=== PATIENT | female | born 1995 | race Caucasian/White ===

== ENCOUNTER → 2017-07-05 | Outpatient (CLI) | payer OTHER ==
[~2017-07-05] MED LIST: NO HOME MEDICATIONS
== END ==
LOC: COL.LAB 08:44
DX: Z11.3 Encounter for screening for infections with a predominantly sexual mode of transmission (principal)

== ENCOUNTER → 2017-07-13 | Outpatient (CLI) | payer OTHER ==
[2017-07-13 09:46] LABS: COLLECTION METHOD CLEAN CATCH
[2017-07-13 09:59] LABS: MUCOUS Present /lpf; PH 7 (5-8); URINE APPEARANCE Cloudy; URINE BACTERIA Rare /hpf; URINE BILIRUBIN Negative (NEGATIVE); URINE BLOOD 1+ (NEGATIVE); URINE COLOR Yellow; URINE GLUCOSE Negative (NEGATIVE); URINE KETONE Negative (NEGATIVE); URINE LEUKOCYTE ESTERASE 3+ (NEGATIVE); URINE NITRATE Negative (NEGATIVE); URINE PROTEIN(semi-quant) Negative (NEGATIVE); URINE UROBILINOGEN Negative (NEGATIVE)
== END ==
LOC: COL.LAB 09:00
PROVIDERS: Family Medicine
DX: N89.8 Other specified noninflammatory disorders of vagina (principal); R30.0 Dysuria

== ENCOUNTER → 2017-09-04 | Outpatient (CLI) | payer OTHER ==
[2017-09-04 17:28] LABS: COLLECTION METHOD CLEAN CATCH
[2017-09-04 17:39] LABS: MUCOUS Present /lpf; PH 5 (5-8); URINE APPEARANCE Cloudy; URINE BACTERIA None Seen /hpf; URINE BILIRUBIN Negative (NEGATIVE); URINE BLOOD Negative (NEGATIVE); URINE COLOR Yellow; URINE GLUCOSE Negative (NEGATIVE); URINE KETONE 2+ (NEGATIVE); URINE LEUKOCYTE ESTERASE Trace (NEGATIVE); URINE NITRATE Negative (NEGATIVE); URINE PROTEIN(semi-quant) 1+ (NEGATIVE); URINE UROBILINOGEN Negative (NEGATIVE)
== END ==
LOC: COL.LAB 15:59
PROVIDERS: Family Medicine
DX: R30.0 Dysuria (principal)

== ENCOUNTER 2017-09-30 19:53 | Emergency (ER) | payer OTHER ==
[~2017-09-30] VITALS: Ht 149.9 cm; Wt 56.8 kg
[2017-09-30 19:56] VITALS: BP 124/77; PULSE 105; TEMP 98.5
[2017-09-30] MEDS ORDERED: SPRINTEC 35 MCG1 TAB PO (19:59)
[2017-09-30] MEDS ORDERED: BACTRIM DS 8001 TAB PO (20:26)
== END 2017-09-30 20:37 | disposition home or self-care (01) ==
LOC: COL.ER 19:53
DX: L03.115 Cellulitis of right lower limb (principal)

== ENCOUNTER → 2017-10-04 | Outpatient (CLI) | payer OTHER ==
[~2017-10-04] MED LIST changes: +BACTRIM DS 8001 TAB PO; +SPRINTEC 35 MCG1 TAB PO
== END ==
LOC: COL.LAB 15:55
DX: N89.8 Other specified noninflammatory disorders of vagina (principal)

== ENCOUNTER → 2017-10-04 | Outpatient (CLI) | payer OTHER | LOC: ZCOL.LAB 01:10 | DX: L02.415 Cutaneous abscess of right lower limb (principal) ==

== ENCOUNTER → 2018-09-13 | Outpatient (CLI) | payer OTHER | LOC: COL.LAB 17:50 → ZCOL.LAB 17:50 | DX: Z11.3 Encounter for screening for infections with a predominantly sexual mode of transmission (principal); N89.8 Other specified noninflammatory disorders of vagina ==

== ENCOUNTER 2020-07-30 17:54 | Emergency (ER) | payer SELFPAY ==
[~2020-07-30] VITALS: Ht 149.9 cm; Wt 61.4 kg
[2020-07-30 18:08] VITALS: TEMP 98.4
[2020-07-30 18:24] LABS: BASO # 0.1 (0.0-0.2); BASO % 0.4 % (0.0-2.0); EOS % 0.2 % (0-4.0); GRAN # 8.5 (1.4-6.5); GRAN % 68.7 % (42.2-75.2); HEMATOCRIT 43.6 % (37.0-47.0); LYMPH # 2.7 (1.2-3.4); LYMPH % 21.4 % (20.0-51.0); MEAN CELL VOLUME 90 fl (80.0-100.0); MEAN CORPUSCULAR HEMOGLOBIN 29 pg (27.0-31.0); MEAN CORPUSCULAR HGB CONC 32 g/dl (33.0-37.0); MEAN PLATELET VOLUME 10.7 fl (7.4-10.4); MONO # 1.1 (0.1-0.6); PLATELET COUNT 355 K/mm3 (130-400); RED BLOOD COUNT 4.83 M/mm3 (4.10-5.30); REDCELL DISTRIBUTION WIDTH-CV 14.6 % (11.5-14.5)
[2020-07-30 18:37] LABS: ALANINE AMINOTRANSFERASE 39 U/L (4-34); ALKALINE PHOSPHATASE 95 U/L (50-136); ANION GAP 15 mmol/L (7-16); AST,SGOT 44 U/L (15-37); BILIRUBIN,TOTAL 0.7 mg/dL (0.0-1.0); BLOOD UREA NITROGEN 6 mg/dL (7-17); CALCIUM 9.8 mg/dL (8.4-10.2); CARBON DIOXIDE 23 mmol/L (22-30); CHLORIDE 98 mmol/L (98-107); CREATININE, serum 0.53 (0.52-1.25); GLUCOSE 103 mg/dL (74-106); POTASSIUM 3.5 mmol/L (3.4-5.0); SODIUM 136 mmol/L (137-145); TOTAL PROTEIN 8.4 gm/dL (6.4-8.2)
[2020-07-30 18:59] LABS: TROPONIN-I < 0.012 ng/mL (0.000-0.035)
[2020-07-30 19:58] VITALS: BP 133/87; PULSE 100
== END 2020-07-30 20:00 | disposition home or self-care (01) ==
LOC: COL.ER 17:54
PROVIDERS: Nurse Practitioner Primary Care
DX: F16.129 Hallucinogen abuse with intoxication, unspecified (principal); F10.129 Alcohol abuse with intoxication, unspecified
CPT/HCPCS: J2060

== ENCOUNTER 2020-10-22 20:36 | Emergency (ER) | payer SELFPAY ==
[~2020-10-22] VITALS: Ht 149.9 cm; Wt 59.1 kg
[2020-10-22 21:49] LABS: ALANINE AMINOTRANSFERASE 73 U/L (4-34); ALBUMIN 5.2 gm/dL (3.5-5.0); ALKALINE PHOSPHATASE 113 U/L (50-136); ANION GAP 21 mmol/L (7-16); AST,SGOT 107 U/L (15-37); BILIRUBIN,TOTAL 0.2 mg/dL (0.0-1.0); BLOOD UREA NITROGEN 8 mg/dL (7-17); CALCIUM 9.6 mg/dL (8.4-10.2); CARBON DIOXIDE 18 mmol/L (22-30); CHLORIDE 99 mmol/L (98-107); CREATININE, serum 0.59 (0.52-1.25); GLUCOSE 98 mg/dL (74-106); POTASSIUM 3.8 mmol/L (3.4-5.0); SODIUM 138 mmol/L (137-145); TOTAL PROTEIN 9.8 gm/dL (6.4-8.2)
[2020-10-22 21:50] LABS: BASO # 0.1 (0.0-0.2); BASO % 0.8 % (0.0-2.0); GRAN % 79.4 % (42.2-75.2); HEMATOCRIT 45.2 % (37.0-47.0); HEMOGLOBIN 14.3 g/dl (12.5-16.0); LYMPH # 1.3 (1.2-3.4); LYMPH % 12.6 % (20.0-51.0); MEAN CELL VOLUME 93 fl (80.0-100.0); MEAN CORPUSCULAR HEMOGLOBIN 30 pg (27.0-31.0); MEAN CORPUSCULAR HGB CONC 32 g/dl (33.0-37.0); MEAN PLATELET VOLUME 10.4 fl (7.4-10.4); MONO # 0.7 (0.1-0.6); PLATELET COUNT 389 K/mm3 (130-400); RED BLOOD COUNT 4.84 M/mm3 (4.10-5.30); REDCELL DISTRIBUTION WIDTH-CV 14.8 % (11.5-14.5)
[2020-10-22 22:04] LABS: TROPONIN-I < 0.012 ng/mL (0.000-0.035)
[2020-10-22 22:21] LABS: COLLECTION METHOD CLEAN CATCH
[2020-10-22 22:29] LABS: MUCOUS Present /lpf; PH 5 (5-8); SQUAMOUS EPITHELIAL 0-2 /hpf; URINE APPEARANCE Hazy; URINE BACTERIA None Seen /hpf; URINE BILIRUBIN Negative (NEGATIVE); URINE BLOOD 2+ (NEGATIVE); URINE COLOR Yellow; URINE GLUCOSE Negative (NEGATIVE); URINE KETONE 2+ (NEGATIVE); URINE LEUKOCYTE ESTERASE Negative (NEGATIVE); URINE NITRATE Negative (NEGATIVE); URINE PROTEIN(semi-quant) 2+ (NEGATIVE); URINE RBC 0-2 /hpf; URINE UROBILINOGEN Negative (NEGATIVE)
[2020-10-22 23:39] LABS: MAGNESIUM 1.9 mg/dL (1.6-2.3)
[2020-10-23 00:10] LABS: THYROID STIMULATING HORMONE 1.29 uIU/mL (0.465-4.680)
[2020-10-23 00:24] VITALS: BP 119/82; PULSE 102; TEMP 98.3
== END 2020-10-23 00:35 | disposition home or self-care (01) ==
LOC: COL.ER 20:36
PROVIDERS: Nurse Practitioner
DX: F41.9 Anxiety disorder, unspecified (principal); F19.10 Other psychoactive substance abuse, uncomplicated
CPT/HCPCS: J2060; J7030

== ENCOUNTER 2021-01-26 18:38 | Emergency (ER) | payer SELFPAY ==
[~2021-01-26] VITALS: Ht 149.9 cm; Wt 68.2 kg
[2021-01-26 18:39] VITALS: TEMP 98.2
[2021-01-26 20:08] LABS: BASO # 0.1 (0.0-0.2); BASO % 1.5 % (0.0-2.0); EOS % 0.5 % (0-4.0); GRAN # 2.5 (1.4-6.5); GRAN % 45.8 % (42.2-75.2); HEMATOCRIT 44.5 % (37.0-47.0); HEMOGLOBIN 13.9 g/dl (12.5-16.0); LYMPH # 2.1 (1.2-3.4); LYMPH % 38.7 % (20.0-51.0); MEAN CELL VOLUME 95 fl (80.0-100.0); MEAN CORPUSCULAR HEMOGLOBIN 30 pg (27.0-31.0); MEAN CORPUSCULAR HGB CONC 31 g/dl (33.0-37.0); MEAN PLATELET VOLUME 11.5 fl (7.4-10.4); MONO # 0.7 (0.1-0.6); MONO % 13.3 % (1.7-9.3); PLATELET COUNT 310 K/mm3 (130-400); RED BLOOD COUNT 4.69 M/mm3 (4.10-5.30); REDCELL DISTRIBUTION WIDTH-CV 13.8 % (11.5-14.5)
[2021-01-26 20:15] LABS: ALBUMIN 4.7 gm/dL (3.5-5.0); CREATININE, serum 0.38 (0.52-1.25); POTASSIUM 4.7 mmol/L (3.4-5.0); TOTAL PROTEIN 8.6 gm/dL (6.4-8.2)
[2021-01-26 20:27] LABS: TROPONIN-I 0.012 ng/mL (0.000-0.035)
[2021-01-26 22:15] VITALS: BP 127/68; PULSE 81
[2021-01-27] MEDS ORDERED: PEPCID 20MG TAB20 MG PO (05:57)
== END 2021-01-26 22:15 | disposition home or self-care (01) ==
LOC: COL.ER 18:38
PROVIDERS: Emergency Medicine
DX: F41.9 Anxiety disorder, unspecified (principal); F15.10 Other stimulant abuse, uncomplicated; R07.89 Other chest pain; F10.10 Alcohol abuse, uncomplicated; R00.0 Tachycardia, unspecified; E86.0 Dehydration
CPT/HCPCS: J7030

== ENCOUNTER 2021-01-27 01:31 | Emergency (ER) | payer SELFPAY ==
[~2021-01-27] VITALS: Ht 149.9 cm; Wt 90.9 kg
[2021-01-27 03:43] LABS: TROPONIN-I < 0.012 ng/mL (0.000-0.035)
[2021-01-27] MEDS ORDERED: PEPCID 20MG TAB20 MG PO (05:57)
[2021-01-27 06:20] VITALS: BP 135/93; PULSE 95; TEMP 98.1
== END 2021-01-27 06:20 | disposition home or self-care (01) ==
LOC: COL.ER 01:31
PROVIDERS: Emergency Medicine
DX: F41.9 Anxiety disorder, unspecified (principal); F15.10 Other stimulant abuse, uncomplicated
CPT/HCPCS: J7030

== ENCOUNTER 2021-02-07 06:58 | Emergency (ER) | payer SELFPAY ==
[~2021-02-07] VITALS: Ht 149.9 cm; Wt 68.2 kg
[~2021-02-07 06:58] MED LIST changes: +PEPCID 20MG TAB20 MG PO
[2021-02-07 07:20] LABS: BASO # 0.1 (0.0-0.2); BASO % 0.8 % (0.0-2.0); EOS % 0.3 % (0-4.0); GRAN # 3.2 (1.4-6.5); GRAN % 49.6 % (42.2-75.2); HEMATOCRIT 44.2 % (37.0-47.0); HEMOGLOBIN 14.3 g/dl (12.5-16.0); LYMPH # 2.1 (1.2-3.4); LYMPH % 32.9 % (20.0-51.0); MEAN CELL VOLUME 94 fl (80.0-100.0); MEAN CORPUSCULAR HEMOGLOBIN 30 pg (27.0-31.0); MEAN CORPUSCULAR HGB CONC 32 g/dl (33.0-37.0); MONO % 15.9 % (1.7-9.3); PLATELET COUNT 310 K/mm3 (130-400); REDCELL DISTRIBUTION WIDTH-CV 13.4 % (11.5-14.5)
[2021-02-07 07:38] LABS: ALBUMIN 4.9 gm/dL (3.5-5.0); BILIRUBIN,TOTAL 0.4 mg/dL (0.0-1.0); C-REACTIVE PROTEIN 0.5 mg/dL (0.0-0.9); CALCIUM 9.9 mg/dL (8.4-10.2); CREATININE, serum 0.48 (0.52-1.25); POTASSIUM 3.2 mmol/L (3.4-5.0); TOTAL PROTEIN 8.2 gm/dL (6.4-8.2)
[2021-02-07 08:33] LABS: COLLECTION METHOD CLEAN CATCH
[2021-02-07 08:42] LABS: PH 7 (5-8); SQUAMOUS EPITHELIAL 0-2 /hpf; URINE APPEARANCE Clear; URINE BACTERIA Rare /hpf; URINE BILIRUBIN Negative (NEGATIVE); URINE BLOOD 2+ (NEGATIVE); URINE COLOR Straw; URINE GLUCOSE Negative (NEGATIVE); URINE KETONE Negative (NEGATIVE); URINE LEUKOCYTE ESTERASE Negative (NEGATIVE); URINE NITRATE Negative (NEGATIVE); URINE PROTEIN(semi-quant) Negative (NEGATIVE); URINE RBC 0-2 /hpf; URINE UROBILINOGEN Negative (NEGATIVE)
[2021-02-07 08:53] LABS: TRICYCLIC ANTIDEPRESS URINE NEGATIVE
[2021-02-07 09:55] VITALS: BP 120/68; PULSE 80
== END 2021-02-07 10:00 | disposition home or self-care (01) ==
LOC: COL.ER 06:58
PROVIDERS: Family Medicine
DX: F10.10 Alcohol abuse, uncomplicated (principal); F15.10 Other stimulant abuse, uncomplicated; R00.0 Tachycardia, unspecified
CPT/HCPCS: J2405; J7120

== ENCOUNTER 2021-03-15 00:57 | Emergency (ER) | payer SELFPAY ==
[~2021-03-15] VITALS: Ht 172.7 cm; Wt 77.3 kg
[2021-03-15 00:59] VITALS: TEMP 97.9
[2021-03-15 01:26] LABS: BASO # 0.1 (0.0-0.2); BASO % 0.6 % (0.0-2.0); EOS # 0.1 (0.0-0.7); EOS % 0.5 % (0-4.0); GRAN # 5.9 (1.4-6.5); GRAN % 54.8 % (42.2-75.2); HEMATOCRIT 44.7 % (37.0-47.0); HEMOGLOBIN 14.6 g/dl (12.5-16.0); LYMPH # 3.5 (1.2-3.4); LYMPH % 32.4 % (20.0-51.0); MEAN CELL VOLUME 91 fl (80.0-100.0); MEAN CORPUSCULAR HEMOGLOBIN 30 pg (27.0-31.0); MEAN CORPUSCULAR HGB CONC 33 g/dl (33.0-37.0); MONO # 1.2 (0.1-0.6); MONO % 11.3 % (1.7-9.3); PLATELET COUNT 318 K/mm3 (130-400); RED BLOOD COUNT 4.91 M/mm3 (4.10-5.30); REDCELL DISTRIBUTION WIDTH-CV 13.2 % (11.5-14.5)
[2021-03-15 02:01] LABS: ALBUMIN 4.9 gm/dL (3.5-5.0); BILIRUBIN,TOTAL 0.2 mg/dL (0.0-1.0); CALCIUM 8.9 mg/dL (8.4-10.2); CREATININE, serum 0.64 (0.52-1.25); POTASSIUM 3.8 mmol/L (3.4-5.0); TOTAL PROTEIN 8.4 gm/dL (6.4-8.2)
[2021-03-15 04:12] VITALS: BP 112/67; PULSE 101
== END 2021-03-15 06:00 | disposition home or self-care (01) ==
LOC: COL.ER 00:57
PROVIDERS: Nurse Practitioner
DX: F10.129 Alcohol abuse with intoxication, unspecified (principal); Y90.8 Blood alcohol level of 240 mg/100 ml or more
CPT/HCPCS: J2405; J7030

== ENCOUNTER 2022-02-23 03:45 | Emergency (ER) | payer SELFPAY ==
[2022-02-23 03:46] VITALS: TEMP 97.3
[2022-02-23] MEDS ORDERED: AMOXICILLIN 8751 TAB PO (06:50)
[2022-02-23 07:45] VITALS: BP 123/92; PULSE 85
== END 2022-02-23 09:30 | disposition home or self-care (01) ==
LOC: COL.ER 03:45
PROVIDERS: Emergency Medicine
DX: S06.9X9A Unspecified intracranial injury with loss of consciousness of unspecified duration, initial encounter (principal); S03.2XXA Dislocation of tooth, initial encounter; Z28.310 Unvaccinated for COVID-19; Y04.8XXA Assault by other bodily force, initial encounter

== ENCOUNTER 2022-10-06 17:52 | Emergency (ER) | payer SELFPAY ==
[~2022-10-06] VITALS: Ht 149.9 cm; Wt 80.0 kg
[~2022-10-06 17:52] MED LIST changes: +AMOXICILLIN 8751 TAB PO
[2022-10-06 18:13] VITALS: TEMP 98.8
[2022-10-06 19:53] LABS: BASO # 0.1 K/mm3 (0.0-0.2); BASO % 0.7 % (0.0-2.0); EOS # 0.1 K/mm3 (0.0-0.7); EOS % 0.6 % (0.0-4.0); GRAN # 5.6 K/mm3 (1.4-6.5); GRAN % 52.5 % (42.2-75.2); HEMATOCRIT 37.4 % (37.0-47.0); HEMOGLOBIN 12.4 g/dl (12.5-16.0); LYMPH # 3.5 K/mm3 (1.2-3.4); LYMPH % 32.8 % (20.0-51.0); MEAN CELL VOLUME 88 fl (80.0-100.0); MEAN CORPUSCULAR HEMOGLOBIN 29 pg (27-31); MEAN CORPUSCULAR HGB CONC 33 g/dl (33.0-37.0); MEAN PLATELET VOLUME 11.2 fl (7.4-10.4); MONO # 1.4 K/mm3 (0.1-0.6); MONO % 13.1 % (1.7-9.3); PLATELET COUNT 387 K/mm3 (130-400); RED BLOOD COUNT 4.23 M/mm3 (4.10-5.30); REDCELL DISTRIBUTION WIDTH-CV 15.4 % (11.5-14.5)
[2022-10-06 20:08] LABS: ALANINE AMINOTRANSFERASE 258 U/L (0-55); ALBUMIN 4.1 gm/dL (3.5-5.0); ALKALINE PHOSPHATASE 73 U/L (40-150); ANION GAP 15 mmol/L (7-16); AST,SGOT 143 U/L (5-34); BILIRUBIN,TOTAL 0.2 mg/dL (0.2-1.2); BLOOD UREA NITROGEN 13 mg/dL (7-19); CARBON DIOXIDE 23 mmol/L (22-29); CHLORIDE 103 mmol/L (98-107); CREATININE, serum 0.75 mg/dL (0.57-1.11); GLUCOSE 75 mg/dL (70-99); POTASSIUM 3.5 mmol/L (3.5-4.5); SODIUM 141 mmol/L (136-145); TOTAL PROTEIN 7.4 gm/dL (6.2-8.1)
[2022-10-06 20:16] LABS: TROPONIN-I < 0.010 ng/mL (0.00-0.033)
[2022-10-06 20:42] VITALS: BP 145/100; PULSE 97
== END 2022-10-06 20:42 | disposition home or self-care (01) ==
LOC: COL.ER 17:52
PROVIDERS: Family Medicine
DX: R07.2 Precordial pain (principal); R10.13 Epigastric pain; R51.9 Headache, unspecified; R06.02 Shortness of breath